=== PATIENT | female | born 1975 | race Caucasian/White ===

== ENCOUNTER → 2024-01-25 08:35 | Outpatient (REF) | payer BC, SELFPAY | LOC: HWWDC 08:35 | PROVIDERS: ATTENDING PHYSICIAN Obstetrics & Gynecology; FAMILY PHYSICIAN Family Medicine | DX: Z12.31 Encounter for screening mammogram for malignant neoplasm of breast (principal) | CPT/HCPCS: 77063; 77067 ==

== ENCOUNTER → 2025-03-06 11:42 | Outpatient (REF) | payer OTHER, SELFPAY | LOC: HWWDC 11:42 | PROVIDERS: ATTENDING PHYSICIAN Obstetrics & Gynecology; FAMILY PHYSICIAN Family Medicine | DX: Z12.31 Encounter for screening mammogram for malignant neoplasm of breast (principal) | CPT/HCPCS: 77063; 77067 ==